=== PATIENT | female | born 1940 | race Caucasian/White ===

== ENCOUNTER 2016-06-04 18:46 | Emergency (ER) | payer MEDICARE ==
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
[2016-06-04] MEDS ORDERED: Ibuprofen TAB* 600 MG PO ONE (21:16)
--- NOTE | 2016-06-04 22:03 | RAD ---
HISTORY: Trauma, swelling, pain, previous internal fixation COMPARISONS: Plain film dated June 04, 2016 TECHNIQUE: Multiple contiguous axial CT images are obtained of the right ankle, with coronal and sagittal multiplanar reconstructions, without intravenous contrast administration. FINDINGS: BONE DENSITY: Normal. BONES: There is an oblique nondisplaced fracture of the distal tibia extending to the articular surface and through the fusion mass along the tibiofibular interval . The patient is status post internal fixation of the distal fibula. Elevation is limited by streak artifact; however, there is no appreciable periprosthetic fracture. There are chronic appearing avulsion injuries of the medial process of the talus JOINTS: There is mild osteoarthritis of the tibiotalar and fibulotalar articulations. MUSCULATURE: Unremarkable ALIGNMENT: There is no dislocation. SOFT TISSUES: Unremarkable. OTHER FINDINGS: None. IMPRESSION: 1. NONDISPLACED FRACTURE OF THE DISTAL TIBIA WITH EXTENSION TO THE ARTICULAR SURFACE. 2. STATUS POST INTERNAL FIXATION OF THE DISTAL FIBULA.
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
[2016-06-04] MEDS ORDERED: Cyclobenzaprine TAB* 10 MG PO ONE ×2 (22:42→22:43)
[2016-06-04 23:22] VITALS: BP 151/74
== END 2016-06-04 23:20 | disposition home or self-care (01) ==
LOC: ED 18:46
DX: S82.201A Unspecified fracture of shaft of right tibia, initial encounter for closed fracture (principal); R60.9 Edema, unspecified; X50.9XXA Other and unspecified overexertion or strenuous movements or postures, initial encounter; Y93.9 Activity, unspecified; Y92.9 Unspecified place or not applicable; Y99.9 Unspecified external cause status
CPT/HCPCS: 99283; A9270-GY

== ENCOUNTER 2017-11-11 16:11 | Observation (INO) | payer MEDICARE, OTHER ==
[2017-11-11] MEDS ORDERED: Nitroglycerin TAB 0.4 MG* 0.4 MG TAB SL ONE (16:25)
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
[2017-11-11 16:52] LABS: ABS Basophils 0.1 10^3/ul (0-0.2); ABS Eosinophils 0.2 10^3/ul (0-0.6); ABS Lymphocytes 1.7 10^3/ul (1.0-4.8); ABS Monocytes 0.5 10^3/ul (0-0.8); ABS Neutrophils 5.8 10^3/ul (1.5-7.7); ABS Nucleated RBC 0 10^3/ul; Eosinophil % 2.6 % (0-6); Hematocrit 34 % (35-47); Hemoglobin 11.4 g/dl (12.0-16.0); Lymphocyte % 20.3 % (25-47); Mean Corpuscular HGB Conc 34 g/dl (31-36); Mean Corpuscular Hemoglobin 31 pg (27-31); Mean Corpuscular Volume 91 fL (80-97); Mean Platelet Volume 7.3 um3 (7.4-10.4); Nucleated Red Blood Cells % 0; Platelet Count 248 10^3/ul (150-450); Red Blood Count 3.72 10^6/ul (4.00-5.40); Red Cell Distribution Width 14 % (10.5-15); White Blood Count 8.3 10^3/ul (3.5-10.8)
--- NOTE | 2017-11-11 17:03 | RAD ---
INDICATION: Chest pain COMPARISON: December 19, 2015 TECHNIQUE: An AP portable view obtained at 1644 hours is submitted. FINDINGS: Bones/Soft Tissues: There are no acute bony findings. Cardiomediastinal: The cardiomediastinal silhouette is normal. Lungs: There are no infiltrates. Pleura: There are no pleural effusions. Other: None IMPRESSION: NO ACTIVE DISEASE.
--- NOTE | 2017-11-11 17:04 | RAD ---
INDICATION: Left wrist pain COMPARISON: None TECHNIQUE: AP, lateral, and oblique views were obtained. FINDINGS: There are no acute bony findings. There is minor osteoarthritis but the base of the thumb. The carpals articulate normally. The radiocarpal joint is intact. There is mild soft tissue swelling. IMPRESSION: NO ACUTE BONY FINDINGS.
[2017-11-11 17:21] LABS: EGFR Non-African American 46.3 (>60)
--- NOTE | 2017-11-11 17:34 | RAD ---
INDICATION: Pain and swelling. COMPARISON: None TECHNIQUE: Duplex interrogation of the left upperextremity was performed. FINDINGS: Deep veins: The visualized jugular, visualized subclavian, axial, brachial, radial, and ulnar veins are patent. There is normal compressibility, augmentation, and phasic flow. Superficial veins: The basilic and cephalic veins are patent. Soft tissues:There are no soft tissue abnormalities. IMPRESSION: Normal examination. No evidence of deep venous thrombosis
[2017-11-11] MEDS ORDERED: Iodixanol* (CONTRAST) 320 MG/ML 100 ML SDV IV ONE (19:08)
--- NOTE | 2017-11-11 19:43 | RAD ---
INDICATION: Chest pain. Short of breath. Evaluate for pulmonary embolus. COMPARISON: Chest x-ray November 12, 1999 TECHNIQUE: Axial source images were obtained from the thoracic inlet to the hemidiaphragms following administration of [address] angiographic technique was utilized. Coronal and sagittal reconstructed images were acquired. CHEST FINDINGS: Neck/thyroid: The visualized neck to include the thyroid appear normal. Chest wall: There are no acute abnormalities of the bony thorax or chest wall. There is no supraclavicular, infraclavicular, or axillary lymphadenopathy. Lungs : There are no pulmonary parenchymal masses or infiltrates. There is mild coarsening of interstitium. There are no endobronchial lesions. Cardiomediastinal structures: There is no CT evidence of acute pulmonary embolic disease. The heart is normal in size. There is no pericardial effusion. There is no evidence of aortic aneurysm or dissection. There are atherosclerotic calcifications. There is no mediastinal or hilar adenopathy. The esophagus appears normal. Pleura : There are no pleural-based masses or effusions. Other: None. IMPRESSION: NO CT EVIDENCE OF ACUTE PULMONARY EMBOLIC DISEASE. LUNGS CLEAR.
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
[2017-11-11] MEDS ORDERED: Acetaminophen TAB* 325 MG PO PRN (21:19)
[2017-11-11] MEDS ORDERED: Ondansetron INJ* 2 MG/ML VIAL IV PRN (21:19)
[2017-11-11] MEDS ORDERED: Nitroglycerin TAB 0.4 MG* 0.4 MG TAB SL PRN (21:19)
[2017-11-11] MEDS ORDERED: Phenazopyridine TAB* 100 MG PO PRN (21:28)
[2017-11-11] MEDS ORDERED: Lisinopril TAB* 10 MG PO SCH (22:00)
[2017-11-11] MEDS ORDERED: levETIRAcetam IV* 750 MG in NS 0.9% 100 ML* 100 ML IVPB SCH (23:00)
[2017-11-11] MEDS: Heparin VIAL(*) 5000 UNITS/ML VIAL (FIVE THOUSAND) SUBCUT SCH (23:05)
[2017-11-11] MEDS: traMADol TAB* 50 MG PO PRN (23:13)
[2017-11-12] MEDS ORDERED: NS 0.9% 1000 ML* 1,000 ML IV SCH
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
[2017-11-12] MEDS: traMADol TAB* 50 MG PO PRN (05:26)
[2017-11-12] MEDS: Heparin VIAL(*) 5000 UNITS/ML VIAL (FIVE THOUSAND) SUBCUT SCH ×2 (05:27→14:10)
[2017-11-12 06:49] LABS: ABS Basophils 0.1 10^3/ul (0-0.2); ABS Eosinophils 0.2 10^3/ul (0-0.6); ABS Lymphocytes 1.7 10^3/ul (1.0-4.8); ABS Monocytes 0.4 10^3/ul (0-0.8); ABS Nucleated RBC 0 10^3/ul; Eosinophil % 2.5 % (0-6); Hematocrit 34 % (35-47); Hemoglobin 11.8 g/dl (12.0-16.0); Lymphocyte % 22.9 % (25-47); Mean Corpuscular HGB Conc 34 g/dl (31-36); Mean Corpuscular Hemoglobin 31 pg (27-31); Mean Corpuscular Volume 90 fL (80-97); Mean Platelet Volume 7.8 um3 (7.4-10.4); Nucleated Red Blood Cells % 0.1; Platelet Count 248 10^3/ul (150-450); Red Blood Count 3.79 10^6/ul (4.00-5.40); Red Cell Distribution Width 14 % (10.5-15); White Blood Count 7.3 10^3/ul (3.5-10.8)
[2017-11-12 06:59] LABS: EGFR Non-African American 53.9 (>60)
[2017-11-12] MEDS ORDERED: Thiamine TAB* 100 MG TAB PO SCH (09:00)
[2017-11-12] MEDS ORDERED: Ascorbic Acid TAB* 500 MG PO SCH (09:00)
[2017-11-12] MEDS ORDERED: Polyethylene Glycol 3350* 17 GM PACKET PO SCH (09:00)
[2017-11-12] MEDS ORDERED: QUEtiapine TAB* 25 MG PO SCH (09:00)
[2017-11-12] MEDS ORDERED: Aspirin EC TAB* 81 MG TAB.EC PO SCH (09:00)
[2017-11-12] MEDS ORDERED: Cetirizine* 10 MG TAB PO SCH (09:00)
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
--- NOTE | 2017-11-12 13:22 | RAD ---
Edited for charges. INDICATION: Chest pain. COMPARISON: There are no prior studies available for comparison. Technique: A single day myocardial perfusion stress study was performed. Initially the resting study was performed. The patient was given an intravenous injection of 10.1 mCi of technetium 99m tetrofosmin and and the heart was imaged in multiple projections. The patient returned later in the day and under the direction of Dr. Johns, the patient was given intervenous injection of Lexiscan. Subsequently the patient was given intravenous injection of 25.4 mCi of technetium 99m tetrofosmin and the heart was imaged in multiple projections. The patient was unable to be positioned for the attenuation corrected images limiting the study. Images were reconstructed in the axial, sagittal and coronal planes and in a 3- D format. FINDINGS: There appears to be normal wall motion and myocardial thickening. The left ventricular ejection fraction was calculated to be 91%. Review of the images demonstrates no significant focal perfusion defects. IMPRESSION: NO EVIDENCE FOR INFARCT OR ISCHEMIA. ASSESSMENT: Low risk. Based on imaging criteria from ACC/AHA 2002 Guideline Update for the Management of Patients With Chronic Stable Angina Table 23. Noninvasive Risk Stratification. MTDD
[2017-11-12] MEDS ORDERED: Regadenoson* 0.4 MG/5 ML SYRINGE ONE (13:50)
[2017-11-12 15:46] VITALS: BP 122/45
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
== END 2017-11-12 14:06 | disposition home or self-care (01) ==
LOC: ED 16:11 → MEDTELE 21:19
PROVIDERS: ADMIT Pediatrics; ATTEND Internal Medicine
DX: R07.9 Chest pain, unspecified (principal); I10 Essential (primary) hypertension; N18.9 Chronic kidney disease, unspecified; I49.1 Atrial premature depolarization; F31.9 Bipolar disorder, unspecified; Z88.6 Allergy status to analgesic agent
CPT/HCPCS: 36415; 71045; 71275; 78452; 80048; 80053; 80061; 83036; 83605; 83735; 84484; 85025; 85379; 93005; 93017; 99284; A9270-GY; A9502; G0378; J1644; J2785; Q9967